=== PATIENT | male | born 1995 | race Caucasian/White ===

== ENCOUNTER 2022-08-18 16:04 | Emergency (ER) | payer SELFPAY ==
[2022-08-18 16:15] VITALS: BP 128/78; PULSE 75; RESP 18; TEMP 37.5; O2SAT 98; BMI 27.1
--- NOTE | 2022-08-18 16:28 | EXP.UTC ---
Discharge Plan Disposition Patient Disposition: Home, Self-Care Condition: Good Referrals Follow up/Referrals: Provider,Referral, MD [Primary Care Provider] - See instructions Activity Restrictions/Add. Instructions Additional Instructions/Restrictions: Go home lay down and try to sleep off remainder of Migraine headache Follow up with your Family Doctor if headache returns Straight to ER if worse headache of your life or headache with vision changes or continues to occur Clinical Impressions Clinical Impression: Headache, migraine Qualifiers: Migraine type: unspecified Status migrainosus presence: without status migrainosus Intractability: not intractable Qualified Code(s): G43.909 - Migraine, unspecified, not intractable, without status migrainosus Print Language Print Language: Qatari Discharge ED Provider: Veronique Claire [facility] General Stated complaint: FLORES Mode of Arrival: Ambulatory Source of Information: Patient Limitations: No Limitations Time Seen by Provider: 08/18/22 16:15 Description of Symptoms (Recalled from Triage Doc. by RN): PATIENT C/O HEADACHE ON AND OFF FOR SEVERAL DAYS HEENT Symptoms (Recalled from RN notes): Yes Resp Symptoms (Recalled from RN notes): No Skin Symptoms (Recalled from RN notes): No MS Symptoms (Recalled from RN notes): No Functional Status (Recalled from RN notes): WNL History of Present Illness Provider Complaint: Used shelter monitor to communicate with Qatari speaking patient, Patient states that he has been having a headache on and off for the last several days States that he has taken Tylenol but not helped much States that he hasnt had his eyes checked in years Denies vision changes, denies blurry vision Denies worse headache of life Denies hitting his head Person with him states that he has not been acting any different or anything no confusion or slurred speech Related Data Allergies Allergy/AdvReac Type Severity Reaction Status Date / Time No Known Allergies Allergy Verified 08/18/22 16:27 Worker's Comp Is this a Worker's Comp case?: No [facility] Disclaimer: The information contained in this section may have been updated after the patient was seen, as this information can be updated by other users. Social History Smoking Status: Unknown if ever smoked alcohol intake: never current occupational status: employed Travel in the last 8 weeks: None ROS Obtained: Yes All systems reviewed & no additional complaints except as documented and Yes Systems reviewed as appropriate & no additional complaints except as documented Constitutional Constitutional: Reports system reviewed and no additional complaints, except as documented, Reports as per HPI, Denies body ache, Reports chills (a few days ago but not since), Denies fatigue, Denies fever(s), Reports headache(s), Denies lethargy and Denies weakness Eyes Eyes: Reports system reviewed and no additional complaints, except as documented, Reports as per HPI, Denies blurry vision, Denies change in vision and Denies loss of vision ENT Ears, Nose, Mouth, and Throat: Reports system reviewed and no additional complaints, except as documented, Reports as per HPI, Denies dizziness, Reports headache(s) and Denies vertigo Cardiovascular Cardiovascular: Reports system reviewed and no additional complaints, except as documented, Reports as per HPI, Denies chest pain and Denies lightheadedness Respiratory Respiratory: Reports system reviewed and no additional complaints, except as documented and Reports as per HPI Gastrointestinal Gastrointestingal: Reports system reviewed and no additional complaints, except as documented and as per HPI Musculoskeletal Musculoskeletal: Reports system reviewed and no additional complaints, except as documented, Reports as per HPI, Denies abnormal gait, Denies stiffness and Reports other (Denies neck pain) Integumentary/Breasts Skin/Breast: Reports system reviewed and no additional complaints, except as doc
[2022-08-18 17:08] LABS: UTC Strep Screen (Rapid) Negative (Negative)
[2022-08-18 17:25] VITALS: BP 128/78; PULSE 75; RESP 18; TEMP 37.5; O2SAT 98
== END 2022-08-18 17:27 | disposition home or self-care (01) ==
PROVIDERS: Emergency Provider Nurse Practitioner
DX: G43.909 Migraine, unspecified, not intractable, without status migrainosus (principal)
CPT/HCPCS: 87880; 96372; 99204; 99212; G0463

== ENCOUNTER 2022-08-19 16:21 | Emergency (ER) | payer SELFPAY ==
[2022-08-19 16:22] VITALS: BP 166/68; PULSE 68; RESP 16; TEMP 37.1; O2SAT 99; BMI 24.2
[2022-08-19 16:31] VITALS: BP 128/81; PULSE 76; RESP 20; O2SAT 98
--- NOTE | 2022-08-19 16:35 | CT_ITS ---
PROCEDURE INFORMATION: Exam: CT Head Without Contrast Exam date and time: 08/19/2022 4:43 PM Age: 27 years old Clinical indication: Other: Headache; Additional info: FLORES TECHNIQUE: Imaging protocol: Computed tomography of the head without contrast. Radiation optimization: All CT scans at this facility use at least one of these dose optimization techniques: automated exposure control; mA and/or kV adjustment per patient size (includes targeted exams where dose is matched to clinical indication); or iterative reconstruction. REPORTING DATA: Count of CT and Cardiac NM exams in prior 12 months: This patient has received 0 known CTs and 0 known cardiac nuclear medicine studies in the 12 months prior to the current study. COMPARISON: No relevant prior studies available. FINDINGS: Brain: Normal. No hemorrhage. Age appropriate white matter. No mass effect. No focal mass. The talamantes-white matter junction is intact. Cerebral ventricles: No ventriculomegaly. Paranasal sinuses: Visualized sinuses are unremarkable. No fluid levels. Mastoid air cells: Visualized mastoid air cells are well aerated. Bones/joints: Unremarkable. No acute fracture. Soft tissues: Unremarkable. IMPRESSION: Normal examination of brain. There is no acute intracranial abnormality. There is no structural abnormality.
--- NOTE | 2022-08-19 16:39 | HMH.EDGENADL ---
Discharge Plan Disposition Patient Disposition: Home, Self-Care Condition: Good Prescriptions Prescriptions: New otzncpzzyl-ugdiwennotwct-krem [Fioricet] 50-300-40 mg capsule 1 cap PO Q6H PRN (Reason: pain) Qty: 10 0RF Referrals Follow up/Referrals: Provider,Referral, [Primary Care Provider] - See instructions Activity Restrictions/Add. Instructions Additional Instructions/Restrictions: Rest tonight. Establish a primary care provider for follow-up with your headaches. Clinical Impressions Clinical Impression: Headache, migraine Instructions Patient Instructions: DI for Migraine Discharge ED Provider: Mike Crane General Adult HPI General Chief complaint: Headache Stated complaint: severe h/a Time Seen by Provider: 08/19/22 16:27 History of Present Illness HPI narrative: The patient presents with a 15-day history of left-sided headache. He states it was gradual in onset. He was seen here yesterday for the same problem and had transient improvement following administration of medications but now states the headache is returned. He denies recent fever earache or sore throat he denies head trauma. He has had previous headaches but not of the severity reportedly. He is otherwise healthy. Related Data Previous Rx's Medication Instructions Recorded uwzlfzzhdz-hjzedmuwtfypj-doxkcbgu 1 cap PO Q6H PRN pain #10 caps 08/19/22 50 mg-300 mg-40 mg capsule (Fioricet) Allergies Allergy/AdvReac Type Severity Reaction Status Date / Time No Known Allergies Allergy Verified 08/18/22 16:27 [facility] Disclaimer: The information contained in this section may have been updated after the patient was seen, as this information can be updated by other users. Social History Smoking Status: Never smoker alcohol intake: never current occupational status: employed Travel in the last 8 weeks: None ROS Obtained: Yes All systems reviewed & no additional complaints except as documented Physical Exam General General appearance: alert and in no apparent distress Head Head exam: other (There is mild tenderness to the left scalp area without associated rash.) Eye Eye exam: Present normal appearance, PERRL and EOMI ENT ENT exam: Present normal exam, normal oropharynx, mucous membranes moist, TM's normal bilaterally and normal external ear exam Neck Neck exam: Present normal inspection, full ROM and trachea midline; Absent meningismus or lymphadenopathy Chest Chest inspection: Present normal inspection and symmetric chest wall rise; Absent tenderness Respiratory Respiratory exam: Present normal lung sounds bilaterally; Absent respiratory distress Cardiovascular Cardiovascular exam: Present regular rate and normal rhythm; Absent JVD Abdominal Exam Abdominal exam: Present soft and normal bowel sounds; Absent distention, tenderness or guarding Extremities Exam Extremities exam: Present normal inspection, full ROM and normal capillary refill; Absent calf tenderness Back Exam Back exam: Present normal inspection; Absent tenderness Neurological Exam Neurological exam: Present alert and oriented X3 Psychiatric Psychiatric exam: Present normal affect and normal mood Skin Skin exam: Present warm, dry, intact and normal color Lymphatic Lymphatic Findings: no adenopathy Medical Decision Making Medical Records Medical records reviewed: Yes I reviewed the patient's medical records. Mac Inquiry Pt receiving controlled substance: No Mac was queried for this patient: No Vital Signs: 08/19/22 16:31 08/19/22 16:22 08/19/22 17:00 Temperature 98.7 F Temperature Source Oral Pulse Rate 76 61 Pulse Rate [Left Radial] 68 Respiratory Rate 20 16 20 Blood Pressure 128/81 121/72 Blood Pressure [Right Arm] 166/68 H Blood Pressure Mean 93 83 Blood Pressure Mean [Right Arm] 100 Blood Pressure Source [Right Arm] Automatic Cuff Blood Pressure P
[2022-08-19 17:00] VITALS: BP 121/72; PULSE 61; RESP 20; O2SAT 98
--- NOTE | 2022-08-19 17:50 | PC.NURSE ---
MD at bedside. wirer passenger car in use
[2022-08-19 18:15] VITALS: BP 133/78; PULSE 76; RESP 16; TEMP 36.9; O2SAT 98
== END 2022-08-19 18:17 | disposition home or self-care (01) ==
PROVIDERS: Emergency Provider Emergency Medicine
DX: G43.909 Migraine, unspecified, not intractable, without status migrainosus (principal)
CPT/HCPCS: 70450; 96374; 96375; 99284